=== PATIENT | male | born 1935 | race Caucasian/White ===

== ENCOUNTER 2017-06-07 15:00 | Inpatient (IN) | payer MEDICARE ==
--- NOTE | 2017-06-07 15:50 | Rehab Joint Replacement Pre-Op ---
Rehab Joint Replacement Pre-Op - Pre-Op Visit Reviewed Items Scheduled for Post Op Visit: No Scheduled Post Op Visit Date: 06/18/17 Pre-Op Visit Comment: Patient lives in single level family dwelling with no steps into front door. Has steps in rear of building but does not use them. Has a walker already and comfortable using it. Has a BSC to put over toilet for raised seat, has rails in bathroom to use for UE support and step in shower. May need shower chair. Karthikeyan Hose/Garment Measurement TKR - Knee High: Yes (Ankle circum: 8.5 inches, calf circum: 13 inches, thigh circum: 19.5 inches. Length heel to knee: 19.5 inches, heel to gluteal fold: 31.5 inches. Size of stocking estimated: Med Regular) Exercise Reviewed: Yes Stair Climbing: Yes Cane/Walker/Crutch Training: Yes Vend Equipment - Cane or Walker and OT Kit: N/A List of Venders in the Area: Yes Shower Chair Transfers: Yes Car Transfers: Yes Bed Transfers: Yes Medical History Forms Issued: N/A Functional Scale Forms Issued: N/A Additional Comments: Patient has a nephew in town who will be bringing him to surgery and staying for several days and we will educate him while patient in hospital for precautions and mobility, gait as needed. Patient is planning to go to a rehab facility for several weeks after discharged from [facility].
[2017-06-17] MEDS ORDERED: CELECOXIB 100 MG CAPSULE PO ONE (06:00)
[2017-06-17] MEDS ORDERED: VANCOMYCIN HCL 1,000 MG in 0.9 % SODIUM CHLORIDE 250ML 250 ML IVPB ONE (06:00)
[2017-06-17] MEDS ORDERED: ACETAMINOPHEN 1,000 MG/100 ML BTL IV ONE (06:00)
[2017-06-17] MEDS ORDERED: MECLIZINE 25 MG TABLET PO ONE (06:00)
[2017-06-17] MEDS ORDERED: METOCLOPRAMIDE 10 MG TABLET PO ONE (06:00)
[2017-06-17] MEDS ORDERED: FAMOTIDINE 20MG TABLET PO ONE (06:00)
[2017-06-17] MEDS ORDERED: BUPIVACAINE 0.5% W/EPI MPF 30 ML VIAL IVP ONE ×2 (12:23→14:00)
[2017-06-17] MEDS ORDERED: VANCOMYCIN HCL 1 GM VIAL IVPB ONE ×2 (12:23→14:00)
[2017-06-17] MEDS ORDERED: TRANEXAMIC ACID 1,000 MG/10 ML ML IV ONE ×2 (12:23→14:00)
[2017-06-17] MEDS ORDERED: BUPIVACAINE LIPOSOME 266MG/20ML VIAL IV ONE (12:23)
[2017-06-17] MEDS ORDERED: PROPOFOL 10 MG/ML VIAL IV ONE (14:00)
[2017-06-17] MEDS ORDERED: MIDAZOLAM HCL 2MG/2ML VIAL IV ONE (14:00)
[2017-06-17] MEDS ORDERED: LIDOCAINE 2% MDV (20MG/ML) 20ML VIAL IV ONE (14:00)
[2017-06-17] MEDS ORDERED: FENTANYL PF 100MCG/2ML VIAL IV ONE (14:00)
[2017-06-17] MEDS ORDERED: EPHEDRINE SULFATE 50 MG/ML ML IV ONE (14:00)
[2017-06-17] MEDS ORDERED: DIPHENHYDRAMINE HCL IV 50 MG/ML VIAL IVP ONE (14:00)
[2017-06-17 14:31] LABS: ABO GROUP O; ANTIBODY SCREEN NEGATIVE (NEGATIVE); RH TYPE POSITIVE
[2017-06-17] MEDS ORDERED: ACETAMINOPHEN W/ CODEINE 300MG/30MG TABLET PO PRN ×2 (14:44)
[2017-06-17] MEDS ORDERED: PROMETHAZINE HCL 12.5 MG in 0.9 % SODIUM CHLORIDE 100ML 50 ML IVPB PRN (14:44)
[2017-06-17] MEDS ORDERED: METOCLOPRAMIDE HCL 10 MG/2 ML VIAL IVP PRN (14:44)
[2017-06-17] MEDS ORDERED: ACETAMINOPHEN W/ CODEINE 300MG/60MG TABLET PO PRN ×2 (14:44)
[2017-06-17] MEDS ORDERED: MORPHINE SULFATE 5 MG/ML PFS IVP PRN ×4 (14:44)
[2017-06-17] MEDS ORDERED: BISACODYL 10 MG SUPP RC PRN (14:44)
[2017-06-17] MEDS ORDERED: TRAMADOL HCL 50 MG TABLET PO PRN ×2 (14:44)
[2017-06-17] MEDS ORDERED: ONDANSETRON HCL IV 4 MG/2 ML VIAL IVP PRN (14:44)
[2017-06-17] MEDS ORDERED: DIPHENHYDRAMINE HCL 25 MG CAPSULE PO PRN (14:44)
[2017-06-17] MEDS ORDERED: HYDROCODONE/APAP 7.5/325MG TABLET PO PRN ×2 (14:44)
[2017-06-17] MEDS ORDERED: ZOLPIDEM TARTRATE 5 MG TABLET PO PRN (14:44)
[2017-06-17] MEDS ORDERED: KETOROLAC 30 MG/ML VIAL IVP PRN ×2 (14:44)
[2017-06-17] MEDS ORDERED: HYDROMORPHONE HCL 2 MG/ML VIAL IM PRN (14:44)
[2017-06-17] MEDS ORDERED: ACETAMINOPHEN 325 MG TAB PO PRN (14:44)
[2017-06-17] MEDS ORDERED: NALOXONE 0.4 MG/1 ML VIAL IVP PRN (14:44)
[2017-06-17] MEDS ORDERED: MAGNESIUM HYDROXIDE 30 ML UDC PO PRN (14:44)
[2017-06-17] MEDS ORDERED: AL HYDROX/MAG HYDROX 30ML UD PO PRN (14:44)
[2017-06-17] MEDS ORDERED: VANCOMYCIN HCL 1,000 MG in 0.9 % SODIUM CHLORIDE 250ML 250 ML IVPB SCH (14:45)
[2017-06-17] MEDS ORDERED: HYDROMORPHONE HCL 1 MG/ML CPJ IM PRN (15:45)
[2017-06-17] MEDS ORDERED: IPRATROPIUM/ALBUTEROL (0.5MG/3MG) NEB INH PRN (16:24)
[2017-06-17] MEDS ORDERED: TEMAZEPAM 15 MG PO PRN (16:28)
[2017-06-17] MEDS ORDERED: BENZONATATE 100 MG CAPSULE PO PRN (16:28)
[2017-06-17] MEDS: PATIENT OWN MED: TAMSULOSIN 0.4 MG PO SCH (21:03)
[2017-06-17] MEDS: PATIENT OWN MED: ATORVASTATIN 40 MG PO SCH (21:04)
[2017-06-17] MEDS: FERROUS GLUCONATE 324 MG PO SCH (21:05)
[2017-06-17] MEDS: PATIENT OWN MED: METOPROLOL SUCCINATE 50 MG PO SCH (21:06)
[2017-06-17] MEDS: MUCUS RELIEF 400 MG PO SCH (21:07)
[2017-06-17] MEDS: DOCUSATE SODIUM 100 MG CAPSULE PO SCH (21:09)
[2017-06-17] MEDS: DEXTROSE 5 % AND 0.9 % NACL 1,000 ML IV PRN (21:11)
[2017-06-17] MEDS ORDERED: FERROUS SULFATE 325 MG TAB PO SCH (22:00)
[2017-06-18] MEDS: DEXTROSE 5 % AND 0.9 % NACL 1,000 ML IV PRN (05:43)
[2017-06-18 06:33] LABS: HEMATOCRIT 35.8 % (42.0-52.0); HEMOGLOBIN 12.1 gm/dl (14.0-18.0)
[2017-06-18] MEDS: PATIENT OWN MED: PANTOPRAZOLE 40 MG PO SCH (07:03)
--- NOTE | 2017-06-18 07:43 | RADIOLOGY REPORT ---
EXAM: LEFT HIP HISTORY: POSTOP. TECHNIQUE: A single view of the left hip was obtained. Comparison: None. FINDINGS: There is a total left hip prosthesis present. No fracture, dislocation, or complicating process seen on this single view. There are skin brent present. IMPRESSION: 1. LEFT HIP PROSTHESIS PRESENT. 2. NO COMPLICATING FEATURE SEEN. JOB NUMBER: [id number] MTDD
[2017-06-18] MEDS: CELECOXIB 100 MG CAPSULE PO SCH (10:06)
[2017-06-18] MEDS: DOCUSATE SODIUM 100 MG CAPSULE PO SCH ×2 (10:06→21:08)
[2017-06-18] MEDS: PATIENT OWN MED: ENALAPRIL 20 MG PO SCH (10:07)
[2017-06-18] MEDS: FERROUS GLUCONATE 324 MG PO SCH ×2 (10:08→21:10)
[2017-06-18] MEDS: ISOSORBIDE MONONITRATE 30 MG PO SCH (10:09)
[2017-06-18] MEDS: RIVAROXABAN 10 MG TABLET PO SCH (10:09)
[2017-06-18] MEDS: MUCUS RELIEF 400 MG PO SCH ×2 (10:09→21:11)
[2017-06-18] MEDS: HYDROCODONE/APAP 5/325MG TABLET PO PRN ×2 (10:10→21:19)
--- NOTE | 2017-06-18 10:31 | Rehab Evaluation ---
Patient Information - Patient Information Diagnosis: Hip OA with KATHY left Ordered Treatment: PT Evaluate and Treat Status: Initial Evaluation Surgery: Yes (KATHY left) Date of Surgery: 06/17/17 Past Medical/Surgical Hx: PAST MEDICAL/SURGICAL HISTORY Past Surgical History QUAD BYPASS; STENTS 2016-nov; LTSA (REVERSE); right total shoulder; HERNIA-bilateral inguinal; bilat cataract sx;cardiac cath x 2 (stents); colonoscopy; umbilical hernia repair. PMH - Respiratory Hx Respiratory Disorders Yes Hx Chronic Obstructive Yes Pulmonary Disease (COPD) Hx Dyspnea Yes Hx Pneumonia Yes Hx of Productive Cough Yes: phlegm-clear Hx of SOB Yes: exertional PMH - Cardiovascular Hx Cardiovascular Disorders Yes Hx Cardiac Catheterization Yes Hx Chest Pain Yes: prn NTG-hasn't used in years Hx Heart Attack Yes: 2003 Hx Hypertension Yes Hx Hypotension Yes Hx Coronary Artery Disease Yes Hx Coronary Artery Bypass Yes Graft Hx Coronary Stent Yes Exercise Tolerance Poor PMH - Neuro Hx Neurological Disorders Yes Hx Weakness Yes: legs/hips PMH - GI Hx Gastroesophageal Reflux Yes Hx Rectal Bleeding Yes: hemmorrhoid Comment: difficulty swallowing big pills PMH - Hx Genitourinary Disorders Yes Hx Bladder Problem Yes: on Flomax Hx Prostate Problems Yes PMH - Endocrine Hx Endocrine Disorders No PMH - Musculoskeletal Hx Musculoskeletal Disorders Yes Hx Arthritis Yes: LEFT HIP ARTHROSIS PMH - Psych Hx Psychiatric Problems No PMH - Hematology/Oncology Hx Hematology/Oncology Yes Disorders Hx Anemia Yes: on iron Hx Bruising Yes: on Plavix Precautions: [place], Fall - Time With Patient Total Time Spent With Patient (Min): 30 Treatment Procedures: Detail (Patient still in bed and has only been up to edge of bed to try to urinate with urinal. Supine to sit with mod assist of one, cues for hip precautions and reviewed. Sit to stand with min assist and cues, FWW, ambulate about 10 feet to edge of bathroom door then turned around and came back to bed. Assisted with exercises seated on edge of bed and reviewed hip precautions again because patient tends to let hip roll inward. Assisted patient into bed min assist of one, up in bed with assist of two, but patient was able to help with right LE. Nephew in room and observed all activity then started working with patient on exercises. Made patient comfortable, replaced cryocuff loosely on left hip, compressive stockings, call light close and tray table close.) Subjective Information - Subjective Information Per Patient (and nephew) Objective Data - Pain Pain Present: Yes Pain Scale Used: Numeric (1 - 10) (5/10) - Mental Status Patient Orientation: Oriented x3 - Visual Perception Appears within normal limits for therapeutic activities - ROM Within normal limits (except both shoulders have had TSA and may not have full ROM. Left hip decreased 50% yet secondary to surgery.) - Strength/Tone Within normal limits (except left hip 3-/3/5) - Coordination Appears within normal limits for therapeutic activities - Bed Mobility Needs Assist (Patient needs assist for all mobility at this time) - Transfers Needs Assist (Patient needs assist for transfers at this time.) - Balance Balance Sitting: Good Balance Standing: Fair - Sensation Intact - Gait Detail (Ambulated about 10 feet to bathroom door then back to far side of bed today with assist with IV pole and CGA, cues, WBAT left.) Therapy Assessment - Therapy Assessment Detail (Patient having a little bit of issue with urinating yet, gait, mobility. SOB with gait and patient claims fatigued after little we did this am. ) Patient Education - Patient Education Teaching Topic: Equipment Use, Exercise/Activity Response: Return Demonstration Teaching Method: Discussion, Demonstration Teaching Recipient: Patient, Family Barriers To Learning: None Problem List - Problem List Physical Therapy Problem List: Detail (Decreased mobility for bed and gait, exercises require quite a bit of encouragement as well as getting up this am.) Goals - Goals Physical Therapy Goals: 1. Mobility with min assist into and out of bed, up in bed with appropriate assist. 2. Gait with FWW about 50 feet or greater before discharge with WBAT and less discomfort. 3. Stairs as required for community ambulation. 4. More independent with function. Prognosis - Prognosis Good (Patient a little hesitant to get up moving this am but should do well as getting up more and mobilizing.) Plan - Plan Physical Therapy Plan: Continue PT BID today and tomorrow am then possible discharge to rehab facility to finish rehab.
--- NOTE | 2017-06-18 12:09 | RADIOLOGY REPORT ---
EXAM: AP CHEST HISTORY: POST TOTAL HIP ARTHROPLASTY. TECHNIQUE: AP view of the chest was obtained. Comparison: None. FINDINGS: Sternal wires are present. The lungs are clear. The cardiac silhouette is mildly enlarged. The diaphragm is unremarkable. Bilateral shoulder arthroplasties. IMPRESSION: MILD CARDIOMEGALY. NO ACUTE INTRATHORACIC PROCESS. JOB NUMBER: [id number] MTDD
--- NOTE | 2017-06-18 14:56 | Rehab Evaluation ---
Patient Information - Patient Information Diagnosis: Hip OA with KATHY left Ordered Treatment: OT Evaluate and Treat Status: Initial Evaluation Surgery: Yes (KATHY left) Date of Surgery: 06/17/17 Past Medical/Surgical Hx: PAST MEDICAL/SURGICAL HISTORY Past Surgical History QUAD BYPASS; STENTS 2016-nov; LTSA (REVERSE); right total shoulder; HERNIA-bilateral inguinal; bilat cataract sx;cardiac cath x 2 (stents); colonoscopy; umbilical hernia repair. PMH - Respiratory Hx Respiratory Disorders Yes Hx Chronic Obstructive Yes Pulmonary Disease (COPD) Hx Dyspnea Yes Hx Pneumonia Yes Hx of Productive Cough Yes: phlegm-clear Hx of SOB Yes: exertional PMH - Cardiovascular Hx Cardiovascular Disorders Yes Hx Cardiac Catheterization Yes Hx Chest Pain Yes: prn NTG-hasn't used in years Hx Heart Attack Yes: 2003 Hx Hypertension Yes Hx Hypotension Yes Hx Coronary Artery Disease Yes Hx Coronary Artery Bypass Yes Graft Hx Coronary Stent Yes Exercise Tolerance Poor PMH - Neuro Hx Neurological Disorders Yes Hx Weakness Yes: legs/hips PMH - GI Hx Gastroesophageal Reflux Yes Hx Rectal Bleeding Yes: hemmorrhoid Comment: difficulty swallowing big pills PMH - Hx Genitourinary Disorders Yes Hx Bladder Problem Yes: on Flomax Hx Prostate Problems Yes PMH - Endocrine Hx Endocrine Disorders No PMH - Musculoskeletal Hx Musculoskeletal Disorders Yes Hx Arthritis Yes: LEFT HIP ARTHROSIS PMH - Psych Hx Psychiatric Problems No PMH - Hematology/Oncology Hx Hematology/Oncology Yes Disorders Hx Anemia Yes: on iron Hx Bruising Yes: on Plavix Premorbid Status: Detail (Pt lives alone in a 1 story house with basement, he stays on the first floor. He has a ramp at the entrance, a walk in shower with a 4" step, he has a seat in the shower but he usually stands to shower. His shower has a hand held shower head and a grab bar, his toilet is standard height and he has a grab bar at the toilet. Prior to surgery he was Ind with all ADLs and IADLs, he has a neighbor who completes yard work. He has a straight cane and a quad cane, a 2 wheeled walker and a sock aid.) Social History: Detail (Pt has a supportive niece and nephew.) Precautions: [place], Fall, Other (Total hip precautions) - Time With Patient Total Time Spent With Patient (Min): 60 Treatment Procedures: Detail (OT eval low complexity) Subjective Information - Subjective Information Per Patient Objective Data - Pain Pain Present: Yes (/) - Mental Status Patient Orientation: Oriented x3 - Visual Perception Appears within normal limits for therapeutic activities (Pt wears glasses at all times.) - ROM Not within normal limits (Howie shoulder flexion limited, pt reports this is longstanding. Howie elbow, wrist and hand AROM WNL.) - Strength/Tone Not within normal limits (Howie shoulder flexion 4/5, howie elbows and glass science engineer strength 4+/5.) - Coordination Appears within normal limits for therapeutic activities - Bed Mobility Needs Assist (Pt required min assist for supine to sit.) - Transfers Needs Assist (CG assist for sit to stand from EOB and chair using walker.) - Balance Balance Sitting: Good Balance Standing: Fair - Sensation Intact - Gait Detail (Pt able to ambulate 10 feet to toilet with 2 wheeled walker and CG assist. Pt was very short of breath with activity.) - ADL's/IADL's Detail (Reviewed total hip precautions, pt will require cont. teaching. Instructed pt in use of auto servicer, sock aid for LE dressing. Pt able to demo donning shorts and right slipper with min assist. Pt able to complete toileting in standing with CG assist.) Therapy Assessment - Therapy Assessment Detail (Pt presents with decreased UE strength, decreased overall endurance and significant shortness of breath with activity, decreased Ind with self care activities, decreased functional mobility needed for safe and Ind ADLs/IADLs.) Problem List - Problem List Physical Therapy Problem List: Detail (Decreased mobility for bed and gait, exercises require quite a bit of encouragement as well as getting up this am.) Occupational Therapy Problem List: Detail (1. Decreased Ind with LE dressing within hip precautions. 2. Decreased Ind with functional mobility needed for safe and Ind self cares. 3. Decreased overall endurance needed for Ind ADLs. 4. Decreased UE strength) Goals - Goals Physical Therapy Goals: 1. Mobility with min assist into and out of bed, up in bed with appropriate assist. 2. Gait with FWW about 50 feet or greater before discharge with WBAT and less discomfort. 3. Stairs as required for community ambulation. 4. More independent with function. Occupational Therapy Goals: 1. Pt will be safe and Ind with LE dressing using adaptive equipment as needed to maintain hip precautions 2. Pt will be Ind with bed mobility and sit to stand. 3. Pt will improve UE strength and overall endurance to allow safe and Ind self care activities. Prognosis - Prognosis Good Plan - Plan Physical Therapy Plan: Continue PT BID today and tomorrow am then possible discharge to rehab facility to finish rehab. Occupational Therapy Plan: OT 1-4 times per week to address endurance, functional mobility, self cares and safety. Feel pt would benefit from short IP rehab stay due to decreased overall endurance and level of Ind with ADLs.
[2017-06-18] MEDS ORDERED: VANCOMYCIN HCL 500 MG in 0.9 % SODIUM CHLORIDE 100ML 100 ML IV ONE (15:30)
--- NOTE | 2017-06-18 16:32 | Physical Therapy Tx Note ---
Physical Therapy Tx Note - Treatment Note Tolerated: Good (Patient doing much better this afternoon than this am: sitting up in chair and willing to get up and walk for PT. Reviewing hip precautions: doing better with recall of those.) Physical Therapy Tx Note: Detail (Patient seen in room, sitting up in chair with cryopad around hip but not attached to machine. Nursing unhooked IV then patient able to move sit to stand with min assist and cues, ambulated with FWW about 50 feet with WBAT to stairs, able to ambulate down stairs three steps with proper technique then pivoted around and ambulated back up three steps with rail and folded walker for support. Ambulated back to room with FWW about 50 feet and back into chair at PT encouragement secondary to breathing a little labored with being in bed so much. Performed hip exercises and ran through hip precautions again with good recall. Hip exercises: march, LAQ and ham curl with light resistance, ankle pumps and isometrics. Re-attached cryopad to machine for cold then calf pump devices for compression. Left tray table and call light close. Brought patient some cold water.) Physical Therapy Problem List: Detail (Decreased mobility for bed and gait, exercises require quite a bit of encouragement as well as getting up this am.) Physical Therapy Goals: 1. Mobility with min assist into and out of bed, up in bed with appropriate assist. 2. Gait with FWW about 50 feet or greater before discharge with WBAT and less discomfort. 3. Stairs as required for community ambulation. 4. More independent with function. Prognosis: Good (Patient doing much better this afternoon and expect tomorrow will be even better with longer distance. Patient has passed skills and plan is for him to go to rehab.) Physical Therapy Plan: Continue PT BID today and tomorrow am then possible discharge to rehab facility to finish rehab.
[2017-06-18] MEDS: PATIENT OWN MED: TAMSULOSIN 0.4 MG PO SCH (17:43)
[2017-06-18] MEDS: PATIENT OWN MED: ATORVASTATIN 40 MG PO SCH (21:09)
[2017-06-18] MEDS: PATIENT OWN MED: METOPROLOL SUCCINATE 50 MG PO SCH (21:11)
[2017-06-19 06:28] LABS: HEMATOCRIT 33.4 % (42.0-52.0); HEMOGLOBIN 10.9 gm/dl (14.0-18.0)
[2017-06-19] MEDS: PATIENT OWN MED: PANTOPRAZOLE 40 MG PO SCH (07:25)
--- NOTE | 2017-06-19 09:36 | Physical Therapy Tx Note ---
Physical Therapy Tx Note - Treatment Note Tolerated: Good (Patient sitting up in chair and willing to get up and walk. Able to walk with FWW about 100 feet in [place] then back to bed with good tolerance, WBAT.) Physical Therapy Tx Note: Detail (Patient seen in room, sitting up in chair and sit to stand with CGA from chair minding hip percautions. Ambulated with FWW about 100 feet in [place] with CGA only, WBAT then back to room, into bed with very little assist with left LE. Performed exercises for hip: heel slides, SLR, quad, glut and ham sets, ankle pumps and tried a few hip abduction exercises. Replaced cryopack on hip, compressive stockings on LES and left tray table and call light close.) Physical Therapy Problem List: Detail (Decreased mobility for bed and gait, exercises require quite a bit of encouragement as well as getting up this am.) Physical Therapy Goals: 1. Mobility with min assist into and out of bed, up in bed with appropriate assist. 2. Gait with FWW about 50 feet or greater before discharge with WBAT and less discomfort. 3. Stairs as required for community ambulation. 4. More independent with function. Prognosis: Good (Patient progressing well and still planning to go to rehab. We will see patient another time today if available.) Physical Therapy Plan: Continue PT BID today and tomorrow am then possible discharge to rehab facility to finish rehab. Day after surgery seen am and will see another time today if available.
[2017-06-19] MEDS: CELECOXIB 100 MG CAPSULE PO SCH (09:55)
[2017-06-19] MEDS: DOCUSATE SODIUM 100 MG CAPSULE PO SCH ×2 (09:56→21:13)
[2017-06-19] MEDS: PATIENT OWN MED: ENALAPRIL 20 MG PO SCH (09:56)
[2017-06-19] MEDS: FERROUS GLUCONATE 324 MG PO SCH ×2 (09:57→21:14)
[2017-06-19] MEDS: ISOSORBIDE MONONITRATE 30 MG PO SCH (09:57)
[2017-06-19] MEDS: MUCUS RELIEF 400 MG PO SCH ×2 (09:57→21:15)
[2017-06-19] MEDS: RIVAROXABAN 10 MG TABLET PO SCH (09:59)
--- NOTE | 2017-06-19 10:39 | Occupational Therapy Tx Note ---
Occupational Therapy Tx Note - Treatment Note Occupational Therapy Treatment Note: Detail (Pt reports he ambulated in the hallway earlier today and is too tired to get up again. Will attempt to recheck later today as time allows.) Occupational Therapy Problem List: Detail (1. Decreased Ind with LE dressing within hip precautions. 2. Decreased Ind with functional mobility needed for safe and Ind self cares. 3. Decreased overall endurance needed for Ind ADLs. 4. Decreased UE strength) Occupational Therapy Goals: 1. Pt will be safe and Ind with LE dressing using adaptive equipment as needed to maintain hip precautions 2. Pt will be Ind with bed mobility and sit to stand. 3. Pt will improve UE strength and overall endurance to allow safe and Ind self care activities. Occupational Therapy Plan: OT 1-4 times per week to address endurance, functional mobility, self cares and safety. Feel pt would benefit from short IP rehab stay due to decreased overall endurance and level of Ind with ADLs.
--- NOTE | 2017-06-19 15:27 | Physical Therapy Tx Note ---
Physical Therapy Tx Note - Treatment Note Tolerated: Good Total Time Spent With Patient: 20 Physical Therapy Tx Note: Detail (Patient states back and hip sore. Patient transferred supine to sit min x1 to support left LE. Patient transferred sit to and from stand CGA x1. Patient ambulated 13 feet with wheeled walker SBA x1. Patient transferred sit to and from stand SBA x1. Patient ambulated 280 feet with wheeled walker SBA x1. Patient transferred sit to supine CGA x1. Patient scooted up in bed independently. Patient performed the following exercises x5-10 reps each: ankle pumps, glut squeezes, SAQ, adductor squeeze and SLR with assist. YARN PACKER reviewed hip precautions with patient. Patient tolerated treatment well. Patient reports good understanding of HEP and hip precautions. Patient reports fatigued after treatment. Patient was left supine in bed with call light within reach.) Physical Therapy Problem List: Detail (Decreased mobility for bed and gait, exercises require quite a bit of encouragement as well as getting up this am.) Physical Therapy Goals: 1. Mobility with min assist into and out of bed, up in bed with appropriate assist. 2. Gait with FWW about 50 feet or greater before discharge with WBAT and less discomfort. 3. Stairs as required for community ambulation. 4. More independent with function. Prognosis: Good Physical Therapy Plan: Continue PT BID today and tomorrow am then possible discharge to rehab facility to finish rehab. Day after surgery seen am and will see another time today if available.
[2017-06-19] MEDS: HYDROCODONE/APAP 5/325MG TABLET PO PRN (18:57)
[2017-06-19] MEDS: PATIENT OWN MED: TAMSULOSIN 0.4 MG PO SCH (18:57)
[2017-06-19] MEDS: PATIENT OWN MED: ATORVASTATIN 40 MG PO SCH (21:13)
[2017-06-19] MEDS: PATIENT OWN MED: METOPROLOL SUCCINATE 50 MG PO SCH (21:14)
[2017-06-20] MEDS: PATIENT OWN MED: PANTOPRAZOLE 40 MG PO SCH (06:02)
--- NOTE | 2017-06-20 08:40 | Discharge Note ---
VTE H&P Assessment - Risk for VTE Risk for VTE: Yes Risk Level: Moderate Risk Assessment Date: 06/17/17 Risk Assessment Time: 18:00 VTE Orders Placed or Will Be Placed: Yes Discharge Medications - Discharge Medications Prescriptions: Hydrocodone/Acetaminophen [Hawi 5-325 Tablet] 1 each PO Q6HR PRN #30 tablet PRN Reason: Analgesia Home Medications: Ambulatory Orders Hydrocodone/Acetaminophen [Hawi 5-325 Tablet] 1 each PO Q6HR PRN #30 tablet 08/27 [Last Taken Unknown] Discharge Note - Date Date of Discharge Note: 06/20/17 Disposition: Home, Self-Care Additional Instructions: follow Dr. Oliva in one week Referrals: NAHOMY SANTILLAN [Primary Care Provider] - Activity at Discharge: Ambulate Only With Your Walker, Increase Activity as Tolerated
[2017-06-20] MEDS: CELECOXIB 100 MG CAPSULE PO SCH (09:20)
[2017-06-20] MEDS: RIVAROXABAN 10 MG TABLET PO SCH (09:21)
[2017-06-20] MEDS: HYDROCODONE/APAP 5/325MG TABLET PO PRN (09:21)
[2017-06-20] MEDS: DOCUSATE SODIUM 100 MG CAPSULE PO SCH (09:21)
[2017-06-20] MEDS: PATIENT OWN MED: ENALAPRIL 20 MG PO SCH ×2 (09:25→09:32)
[2017-06-20] MEDS: ISOSORBIDE MONONITRATE 30 MG PO SCH ×2 (09:25→09:32)
[2017-06-20] MEDS: MUCUS RELIEF 400 MG PO SCH (09:25)
[2017-06-20] MEDS: FERROUS GLUCONATE 324 MG PO SCH (09:26)
--- NOTE | 2017-06-20 11:40 | Discharge Summary ---
DATE OF ADMISSION: 06/17/2017 DATE OF DISCHARGE: 06/20/2017 Attending physician: Aaron Carpenter DO Surgeon: Dr. Oliva DISCHARGE DIAGNOSES: 1. Left hip replacement postop day 3. 2. History of hypertension. 3. History of coronary artery disease. 4. History of COPD. He does tend to be short winded with exercise at this point, which is just his own deconditioning. REASON FOR HOSPITALIZATION: The patient was admitted to the hospital for a left hip replacement. SIGNIFICANT FINDINGS: Chest x-ray showing a normal chest x-ray, mild cardiomegaly. LABORATORY: Last hemoglobin was 10.9. The patient has been progressing slowly with physical therapy, but he does everything he is told. He does get up, he has to be encouraged to get up and move and do the things that physical therapy wants him to do. He is getting up in a chair to eat. He would rather not move around, but I have advised him it is best to keep moving, he will heal up faster. MEDICATIONS: 1. He has hardly used [place]. The last dose of [place] was 24 hours ago. Currently prescribed [place] 5 mg q.6h. p.r.n. 2. Also, we will have him continue Maalox 30 mg q.6h. p.r.n. 3. Duo-Nebs q.i.d. p.r.n. 4. Tessalon 200 mg t.i.d. p.r.n. cough. 5. Dulcolax 10 mg rectal suppository p.r.n. constipation. 6. Celebrex 200 mg per day scheduled. 7. Benadryl q.6h. p.r.n. itching. 8. Colace 100 mg b.i.d. scheduled. 9. Milk of Magnesia 30 mL p.r.n. constipation. 10. Atorvastatin 40 mg at h.s. 11. Metoprolol succinate 50 mg at h.s. 12. Enalapril 10 mg per day. 13. Protonix 40 mg per day. 14. Flomax 0.4 mg per day. 15. Ferrous sulfate 324 b.i.d. 16. Isosorbide mononitrate 30 mg per day. 17. Temazepam 15 mg at h.s. p.r.n. sleep. 18. Mucinex guaifenesin 400 mg b.i.d. scheduled. 19. Xarelto 10 mg per day for one more week. 20. Ambien 5 mg at h.s. p.r.n. insomnia. DISCHARGE INSTRUCTIONS: The patient is to follow up with Dr. Oliva in one week for evaluation of the surgery, and to follow up with his primary physician after discharge from [facility]. The patient is being sent to [facility] for rehabilitation. CC: Dr. Pj LEDBETTER
--- NOTE | 2017-06-20 16:55 | Operative Note ---
DATE OF SURGERY: 06/17/2017 PREOPERATIVE DIAGNOSIS: End-stage left hip arthrosis. POSTOPERATIVE DIAGNOSIS: End-stage left hip arthrosis. OPERATION: Left total hip arthroplasty. Surgeon: Carlos Oliva M.D. Anesthesia: Spinal. Anesthesia Provider: Grover ALMAGUER COMPLICATIONS: None. BLOOD LOSS: 150 mL OPERATIVE FINDINGS: [id number] arthrosis, collapse of femoral head. COMPONENTS PLACED: A 2 g vancomycin [employer] Synergy cemented collar Arthroplasty System, size 14 stem, high-offset 12 spacer, a large distal cemented restrictor, a 50 mm 3-hole acetabular Reflection shell with 2 screw caps, centrally-threaded screw cap and 45 mm screw, and a 35 degree high crosslinked polyethylene liner. Indication for Operation: This is an 81 year-of-age male who has had persistent pain and dysfunction in his left hip for several years and failed nonoperative treatment. He was scheduled for hip arthroplasty. I explained the risks and benefits of the diagnostic procedure including but not limited to , infection, nerve injury, vessel injury, stiffness, pain, numbness, tingling in his hip, periprosthetic fracture, need for resection arthroplasty, components loosening, injuries to nerves and blood vessels, blood clot, limb length discrepancy, and even . All of his questions were answered. Course was outlined, and he agreed to proceed. PROCEDURE: Patient was brought to the operating room and placed in the right lateral decubitus position. Left hip and lower extremity were prepped and draped in sterile fashion and prepped and draped. A general timeout was performed. Next, a posterior approach was marked of the hip and incision marked with template. It was infiltrated with 0.5% Marcaine with epi into the incision. Skin and subcutaneous tissue dissected down to the fascia was split longitudinally and the subgluteal plane was bluntly detected. The self retainer was brought in. We identified short external rotators and tagged with # 2 Vicryl after releasing carefully protected the sciatic nerve at all times. We incised the capsule along the border of the acetabular head. We located the acetabular head without difficulty. It was severely deformed and with arthritic changes. We resected the head about 7 degrees out from the lesser trochanter. We inserted the box osteotome, inserted the reamers, reamed back with power up to 14 and then broached at 12 and 15 degrees of anteversion and converted to calcar planed with a 14. Very good fit with that size piece. Attention was turned to the acetabulum. We released the anterior capsule and placed an inferior acetabular retractor and then exposed the acetabulum to the labrum and started reaming with the 44 mm reamer in 1 mm increments up to a size 49. Then we impacted the trial 49, which fit nicely, flush with the medial wall with 45 degrees inclination and 20 degrees anteversion. Next we irrigated copiously. We impacted down the real 3-hole acetabular liner using a helicopter guide, 45 degrees inclination, 20 degrees anteverted, until it was flush with the medial wall. We drilled the posterior central superior quadrant screw hole and it measured for a 45 mm screw. The screw was then screwed in with excellent purchase. Next, we placed a trial of poly liner and did a trial reduction. Best combination, range of motion and stability, good abductor tension was with the high offset 32+0 head. This allowed for good reduction, good abductor tensioning and stability with extension and external rotation. We had symmetric leg lengths, stability with flexion to 90, internal rotation to 80 before the hip dislocated. This was the size that we used. We dislocated the hip, irrigated the acetabulum, placed the centrally-threaded screw cap and 2 other caps in the holes, impacted down the real 45 degree high crosslink polyethylene liner to the posterior superior quadrant. We then placed the cement- restricted distal femoral canal, irrigation, injected the cement, removing excess cement with the suction catheter and then impacted down the real femoral stem until the counter was flush with the medial calcar at 15 degrees of anteversion until the cement hardened. We then dried the trunnion, impacted the real femoral head and re-reduced the hip, finding range of motion still the same. Irrigated the wound, closed the short external rotators to the abductors using 2 -0 running Vicryl, irrigated again, closed the deep fascia with running #2 Quill and closed the skin with 2-0 Vicryl brent. We then injected 0.5% Marcaine with epi mixture with Exparel and 2-gram tranexamic acid. Received Toradol and tranexamic acid IV, pre and postop as well. Sterile dressing applied. Postop x-ray revealed good fit and orientation of the components. Patient tolerated the procedure well with no intraoperative complications. Sponge and needle counts correct. To recovery room stable. Neuro is intact. He will be [facility] to [facility] and likely discharged in 1-2 days home. SARAH
== END 2017-06-20 14:05 | disposition home or self-care (01) | DRG 470 ==
LOC: MEDSURG 06-17 12:15
PROVIDERS: ADMIT Orthopaedic Surgery; ATTEND Orthopaedic Surgery
PROC: 0SRB049 Replacement of Left Hip Joint with Ceramic on Polyethylene Synthetic Substitute, Cemented, Open Approach (ICD-10-PCS; principal; 2017-06-17 15:30)
DX: M16.12 Unilateral primary osteoarthritis, left hip (principal); I10 Essential (primary) hypertension; Z79.01 Long term (current) use of anticoagulants; I25.10 Atherosclerotic heart disease of native coronary artery without angina pectoris
CPT/HCPCS: 71010; 85014; 85018; 86850; 86900; 86901; 94760; 97110; 97116; 97165; 97530; J1200; J3370; J7042; J7050